=== PATIENT | male | born 1965 | race Caucasian/White ===

== ENCOUNTER → 2016-12-26 | Outpatient (CLI) | payer BC, MEDICAID ==
--- NOTE | 2016-12-26 08:41 | REP ---
MRI LUMBAR SPINE WITHOUT CONTRAST: 12/26/2016 CLINICAL HISTORY: Intervertebral disc degeneration. Back pain. COMPARISON: 06/26/2014 MRI. TECHNIQUE: Sagittal T1, T2 and STIR images with axial T1-T2 sequences provided. FINDINGS. Sagittal images show slight loss of lordosis but this is unchanged from the previous study. There is mild decreased disc water signal at L4-5 and L5-S1. Decreased disc water signal and height at L1-2 are again seen. There is some progression of disc desiccation at the L1-2 level. I see no marrow signal abnormality to suggest compression deformity or focal lesion other than a small benign hemangioma in the superior anterior aspect of L3. Marginal osteophytes anteriorly at the L1-2 level. Conus terminates at the T12-L1 level. The T12-L1 level shows no disc bulge herniation and no spinal or foraminal stenosis. At L1-2, minimal disc bulge without spinal or foraminal stenosis. At L2-L3 and L3-L4, there is no disc bulge or herniation and no spinal or foraminal stenosis. At L4-5, there is mild broad-based disc bulge flattening the ventral thecal sac. This abuts the L5 nerve roots in the canal but does not displace them. Cross-sectional area of the canal was adequate. There is hypertrophic facet change at this level. The left foramen is marginal and the right foramen shows some loss of perineural fat with borderline nerve root compression. At L5-S1, there is a tiny central disc protrusion without spinal stenosis. The disc does not abut or displace the S1 nerve roots in the canal, which has ample cross-sectional area. There is some loss of perineural fat bilaterally with the L5 roots mildly compressed in those foramina. IMPRESSION: 1. Very tiny central disc protrusion at L5-S1 not causing central canal stenosis. Hypertrophic facet changes cause some encroachment bilaterally in the foramina with borderline nerve root compression. 2. Mild broad-based disc bulge at L4-5 without significant central canal stenosis and with facet hypertrophy and a marginal left foramen with right foramen with borderline nerve root compression. 3. Mild disc space narrowing at L1-2 without spinal or foraminal stenosis. 4. L2-3 and L3-4, there is no disc bulge or herniation and no spinal or foraminal stenosis. Signed by Evin Salazar MD 12/26/2016 05:49 P
== END ==
LOC: M RAD 06:45
PROVIDERS: ATTEND Orthopaedic Surgery
DX: M51.36 Other intervertebral disc degeneration, lumbar region (principal)

== ENCOUNTER → 2017-02-22 | Outpatient (REF) | payer BC, MEDICAID ==
[2017-02-22 14:51] LABS: ALBUMIN/GLOBULIN RATIO 1.48 (1.00-1.93); ALKALINE PHOSPHATASE 71 U/L (45-117); ALT/SGPT 31 U/L (12-78); ANION GAP 7 MEQ/L (8-16); AST/SGOT 15 U/L (15-37); BILIRUBIN,TOTAL 0.4 MG/DL (0.2-1.0); BLOOD UREA NITROGEN 28 MG/DL (7-18); CALCIUM LEVEL 8.8 MG/DL (8.5-10.1); CARBON DIOXIDE LEVEL 25 MEQ/L (21-32); CHLORIDE LEVEL 109 MEQ/L (98-107); GLOMERULAR FILTRATION RATE > 60.0 (>56); GLUCOSE, FASTING 86 MG/DL (70-105); POTASSIUM SERUM 3.9 MEQ/L (3.5-5.1); SODIUM LEVEL 141 MEQ/L (136-145); TOTAL PROTEIN 6.7 GM/DL (6.4-8.2)
== END ==
LOC: M SFHCPLAZ 10:35
PROVIDERS: ATTEND Family Medicine
DX: E11.9 Type 2 diabetes mellitus without complications (principal); Z12.5 Encounter for screening for malignant neoplasm of prostate
CPT/HCPCS: 36415; 80053; 83036; G0103

== ENCOUNTER → 2017-09-05 | Outpatient (REF) | payer BC, MEDICAID ==
[2017-09-05 12:47] LABS: ALKALINE PHOSPHATASE 76 U/L (45-117); ALT/SGPT 32 U/L (12-78); ANION GAP 8 MEQ/L (8-16); AST/SGOT 16 U/L (15-37); BILIRUBIN,TOTAL 0.6 MG/DL (0.2-1.0); BLOOD UREA NITROGEN 20 MG/DL (7-18); CALCIUM LEVEL 8.9 MG/DL (8.5-10.1); CARBON DIOXIDE LEVEL 28 MEQ/L (21-32); CHLORIDE LEVEL 106 MEQ/L (98-107); CREATININE FOR GFR 1.24 MG/DL (0.70-1.30); GLOMERULAR FILTRATION RATE > 60.0 (>56); GLUCOSE, FASTING 83 MG/DL (70-105); POTASSIUM SERUM 3.9 MEQ/L (3.5-5.1); SODIUM LEVEL 142 MEQ/L (136-145); TRIGLYCERIDES LEVEL 125 MG/DL (<150)
[2017-09-05 12:48] LABS: ALBUMIN/GLOBULIN RATIO 1.43 (1.00-1.93); CHOLESTEROL LEVEL 83 MG/DL (<200); TOTAL PROTEIN 6.8 GM/DL (6.4-8.2)
== END ==
LOC: M SFHCPLAZ 08:58
PROVIDERS: ATTEND Family Medicine
DX: E11.9 Type 2 diabetes mellitus without complications (principal); E78.4 Other hyperlipidemia; Z12.5 Encounter for screening for malignant neoplasm of prostate

== ENCOUNTER 2017-11-04 11:59 | Emergency (ER) | payer BC, MEDICAID ==
[~2017-11-04] VITALS: Ht 180.3 cm; Wt 118.2 kg
[2017-11-04] MEDS ORDERED: GLIM2TAB PO (12:10)
[2017-11-04] MEDS ORDERED: TERA5CA PO (12:10)
[2017-11-04] MEDS ORDERED: TRAD5TAB PO (12:10)
[2017-11-04] MEDS ORDERED: ATOR40TA75 PO (12:10)
[2017-11-04] MEDS ORDERED: LISI-538 PO (12:10)
[2017-11-04] MEDS ORDERED: METF500T13 PO (12:10)
[2017-11-04] MEDS ORDERED: OMEP20CA3 PO (12:10)
[2017-11-04] MEDS ORDERED: FINA5TAB2 PO (12:10)
[2017-11-04] MEDS ORDERED: MELO15TA4 PO (12:10)
[2017-11-04] MEDS ORDERED: IPRATROPIUM 0.5MG/ALBUTEROL 2.5MG INH SOL UD 3ML (DUONEB)(J7620) NEB ONE (14:15)
[2017-11-04] MEDS ORDERED: ACETAMINOPH W/CODEINE #3 TAB UD PO ONE ×2 (14:15→14:30)
--- NOTE | 2017-11-04 14:22 | REP ---
REASON: Fever and cough. FINDINGS: The superior mediastinal structures are midline. The cardiac silhouette is unremarkable in size, shape, and position. The diaphragmatic surfaces of the lungs are regular, and the costophrenic angles are clear. The pulmonary santana are clear. The imaged osseous structures are intact. IMPRESSION: There is no acute cardiopulmonary disease. Signed by Meliton Lopez DO 11/04/2017 02:27 P
[2017-11-04] MEDS ORDERED: ACET30TAB PO (14:36)
[2017-11-04] MEDS ORDERED: ZITHTAB PO (14:36)
[2017-11-04] MEDS ORDERED: PROAAER10 INH (14:36)
[2017-11-04] MEDS ORDERED: BENZ100C5 PO (14:36)
[2017-11-04 14:47] VITALS: BP 144/99
== END 2017-11-04 14:51 | disposition home or self-care (01) ==
LOC: M ED 11:59
DX: J20.9 Acute bronchitis, unspecified (principal); M54.9 Dorsalgia, unspecified

== ENCOUNTER → 2017-12-21 | Outpatient (CLI) | payer BC, MEDICAID | LOC: M ADAMS 10:28 | DX: S22.32XA Fracture of one rib, left side, initial encounter for closed fracture (principal); X58.XXXA Exposure to other specified factors, initial encounter; Y92.89 Other specified places as the place of occurrence of the external cause | CPT/HCPCS: 71111 ==

== ENCOUNTER → 2018-01-08 | Outpatient (REF) | payer BC, MEDICAID ==
[2018-01-08 12:01] LABS: ESTIMATED AVERAGE GLUCOSE 123 MG/DL (60-110); HEMOGLOBIN A1c 5.9 %
[2018-01-08 12:27] LABS: ANION GAP 10 MEQ/L (8-16); BLOOD UREA NITROGEN 13 MG/DL (7-18); CARBON DIOXIDE LEVEL 28 MEQ/L (21-32); CHLORIDE LEVEL 106 MEQ/L (98-107); CREATININE FOR GFR 1.19 MG/DL (0.70-1.30); GLOMERULAR FILTRATION RATE > 60.0 (>56); GLUCOSE, FASTING 119 MG/DL (70-100); POTASSIUM SERUM 4.1 MEQ/L (3.5-5.1); SODIUM LEVEL 144 MEQ/L (136-145)
== END ==
LOC: M SFHCPLAZ 08:11
DX: E11.9 Type 2 diabetes mellitus without complications (principal)
CPT/HCPCS: 83036

== ENCOUNTER 2018-04-14 09:11 | Emergency (ER) | payer BC, MEDICAID ==
[2018-04-14] MEDS: KETOROLAC TROMETHAMINE 10 MG TAB PO (09:53)
== END 2018-04-14 11:12 | disposition home or self-care (01) ==
LOC: M ED 09:11
DX: S23.41XA Sprain of ribs, initial encounter (principal); X50.0XXA Overexertion from strenuous movement or load, initial encounter; Y92.099 Unspecified place in other non-institutional residence as the place of occurrence of the external cause; Y93.89 Activity, other specified; Y99.9 Unspecified external cause status; E11.9 Type 2 diabetes mellitus without complications; I10 Essential (primary) hypertension; E78.5 Hyperlipidemia, unspecified; K21.9 Gastro-esophageal reflux disease without esophagitis; Z87.81 Personal history of (healed) traumatic fracture; Z79.84 Long term (current) use of oral hypoglycemic drugs; Z79.899 Other long term (current) drug therapy
CPT/HCPCS: 71101

== ENCOUNTER → 2018-05-22 | Outpatient (CLI) | payer BC | LOC: M PAIN 15:00 | DX: S22.42XA Multiple fractures of ribs, left side, initial encounter for closed fracture (principal); Y92.89 Other specified places as the place of occurrence of the external cause; Y93.89 Activity, other specified; Y99.8 Other external cause status; I10 Essential (primary) hypertension; E11.9 Type 2 diabetes mellitus without complications; E78.5 Hyperlipidemia, unspecified; K21.9 Gastro-esophageal reflux disease without esophagitis; Z79.84 Long term (current) use of oral hypoglycemic drugs; Z79.899 Other long term (current) drug therapy | CPT/HCPCS: G0463 ==

== ENCOUNTER → 2018-06-20 | Outpatient (REF) | payer BC ==
[2018-06-20 14:54] LABS: ALBUMIN 3.9 GM/DL (3.2-5.2); ALBUMIN/GLOBULIN RATIO 1.39 (1.00-1.93); ALKALINE PHOSPHATASE 85 U/L (45-117); ALT/SGPT 59 U/L (12-78); ANION GAP 9 MEQ/L (8-16); AST/SGOT 22 U/L (7-37); BILIRUBIN,TOTAL 0.9 MG/DL (0.2-1.0); BLOOD UREA NITROGEN 15 MG/DL (7-18); CALCIUM LEVEL 8.7 MG/DL (8.5-10.1); CARBON DIOXIDE LEVEL 27 MEQ/L (21-32); CHLORIDE LEVEL 108 MEQ/L (98-107); CHOLESTEROL LEVEL 87 MG/DL (<200); CHOLESTEROL RISK RATIO 2.636 (<5); CREATININE FOR GFR 1.15 MG/DL (0.70-1.30); GLOMERULAR FILTRATION RATE > 60.0 (>56); GLUCOSE, FASTING 115 MG/DL (70-100); HDL CHOLESTEROL 33 MG/DL (>40); LDL CHOLESTEROL 14.4 MG/DL (<100); NON-HDL-C 54 MG/DL; SODIUM LEVEL 144 MEQ/L (136-145); TOTAL PROTEIN 6.7 GM/DL (6.4-8.2); TRIGLYCERIDES LEVEL 198 MG/DL (<150)
[2018-06-20 15:01] LABS: ESTIMATED AVERAGE GLUCOSE 157 MG/DL (60-110); HEMOGLOBIN A1c 7.1 %; MALB URINE SIEMENS 33.9 MG/L; MAU/CREAT RATIO 21.4 MCG/MG (0.0-30.0)
== END ==
LOC: M SFHCADAM 11:14
DX: E11.9 Type 2 diabetes mellitus without complications (principal); E78.4 Other hyperlipidemia
CPT/HCPCS: 80053

== ENCOUNTER → 2019-01-06 | Outpatient (REF) | payer BC ==
[~2019-01-06] MED LIST: ACET30TAB PO; ALEV220C2 PO; ATOR40TA75 PO; BENZ-18 PO; CYCL10TA PO; FINA5TAB2 PO; GLIM2TAB PO; LISI-538 PO; MELO15TA28 PO; METF500T13 PO; NORCOTAB PO; OMEP20CA3 PO; PROAAER10 INH; TERA5CAP3 PO; TRAD5TAB PO; ZITHTAB PO
[2019-01-06 12:47] LABS: BLOOD UREA NITROGEN 17 MG/DL (7-18); CALCIUM LEVEL 9.1 MG/DL (8.5-10.1); CARBON DIOXIDE LEVEL 27 MEQ/L (21-32); CHLORIDE LEVEL 107 MEQ/L (98-107); CREATININE FOR GFR 1.25 MG/DL (0.70-1.30); GLOMERULAR FILTRATION RATE > 60.0 (>56); GLUCOSE, FASTING 135 MG/DL (70-100); POTASSIUM SERUM 4.6 MEQ/L (3.5-5.1); SODIUM LEVEL 142 MEQ/L (136-145)
[2019-01-06 13:04] LABS: HEMOGLOBIN A1c 7.8 %
== END ==
LOC: M SFHCADAM 08:18
PROVIDERS: ATTEND Family Medicine
DX: E11.9 Type 2 diabetes mellitus without complications (principal)

== ENCOUNTER → 2019-01-08 | Outpatient (CLI) | payer BC ==
--- NOTE | 2019-01-08 17:28 | REP ---
UNILATERAL LEFT RIBS, 5 VIEWS: HISTORY: Left sided pain. COMPARISON: 04/14/2018. There is no PA chest with this rib series. There are old fractures of the left 7th and 8th ribs. There is no new fracture. The left lung is clear. IMPRESSION:Old left 7th and 8th rib fractures. Electronically Signed by Juanpablo Block MD 01/09/2019 08:15 A
== END ==
LOC: M ADAMS 11:39
PROVIDERS: ATTEND Family Medicine
DX: R07.81 Pleurodynia (principal); Z87.81 Personal history of (healed) traumatic fracture

== ENCOUNTER → 2019-04-03 | Outpatient (REF) | payer BC ==
[~2019-04-03] MED LIST changes: +ACET-716 PO; -ACET30TAB PO; +HYDR-3715 PO; -NORCOTAB PO
== END ==
LOC: M SFHCPLAZ 17:28
PROVIDERS: ATTEND Dermatology
DX: D48.5 Neoplasm of uncertain behavior of skin (principal)

== ENCOUNTER → 2019-04-28 | Outpatient (REF) | payer BC ==
[2019-04-28 13:15] LABS: BLOOD UREA NITROGEN 20 MG/DL (7-18); CALCIUM LEVEL 9.1 MG/DL (8.5-10.1); CARBON DIOXIDE LEVEL 27 MEQ/L (21-32); CHLORIDE LEVEL 107 MEQ/L (98-107); GLOMERULAR FILTRATION RATE > 60.0 (>56); GLUCOSE, FASTING 141 MG/DL (70-100); POTASSIUM SERUM 4.2 MEQ/L (3.5-5.1); SODIUM LEVEL 141 MEQ/L (136-145)
[2019-04-28 14:27] LABS: HEMOGLOBIN A1c 7.7 %
== END ==
LOC: M SFHCADAM 07:55
PROVIDERS: ATTEND Family Medicine
DX: E11.9 Type 2 diabetes mellitus without complications (principal)

== ENCOUNTER → 2019-09-26 | Outpatient (REF) | payer BC ==
[~2019-09-26] MED LIST changes: -GLIM2TAB PO; +GLIM2TAB2 PO; -OMEP20CA3 PO; +OMEP20CA4 PO
[2019-09-26 15:59] LABS: HEMATOCRIT 41.1 % (42.0-52.0); HEMOGLOBIN 13.6 g/dl (13.5-17.5); MEAN CORPUSCULAR HEMOGLOBIN 29.2 pg (27.0-33.0); MEAN CORPUSCULAR HGB CONC 33.1 g/dl (32.0-36.5); MEAN CORPUSCULAR VOLUME 88.2 fl (80.0-96.0); PLATELET COUNT, AUTOMATED 182 10^3/uL (150-450); RED BLOOD COUNT 4.66 10^6/uL (4.30-6.10); WHITE BLOOD COUNT 7.1 10^3/uL (4.0-10.0)
[2019-09-26 16:07] LABS: ALBUMIN 3.9 GM/DL (3.2-5.2); BILIRUBIN,TOTAL 0.5 MG/DL (0.2-1.0); CALCIUM LEVEL 9.4 MG/DL (8.5-10.1); CHOLESTEROL RISK RATIO 2.775 (<5); CREATININE FOR GFR 1.53 MG/DL (0.70-1.30); GLOMERULAR FILTRATION RATE 50.4 (>56); POTASSIUM SERUM 4.5 MEQ/L (3.5-5.1); TOTAL PROTEIN 6.8 GM/DL (6.4-8.2)
[2019-09-26 16:34] LABS: HEMOGLOBIN A1c 7.5 %
[2019-09-26 16:35] LABS: MALB URINE SIEMENS 11.2 MG/L
== END ==
LOC: M SFHCADAM 13:05
PROVIDERS: ATTEND Family Medicine
DX: Z12.5 Encounter for screening for malignant neoplasm of prostate (principal); K21.0 Gastro-esophageal reflux disease with esophagitis; E78.49 Other hyperlipidemia; E11.9 Type 2 diabetes mellitus without complications
CPT/HCPCS: 80053; 80061; 82043; 83036; 85027; G0103

== ENCOUNTER → 2019-12-24 | Outpatient (REF) | payer BC ==
[~2019-12-24] MED LIST changes: -GLIM2TAB2 PO; +GLIM2TAB4 PO; +OMEP1CAP73 PO; -OMEP20CA4 PO
[2019-12-24 14:01] LABS: ALBUMIN 4.3 GM/DL (3.2-5.2); BILIRUBIN,TOTAL 0.7 MG/DL (0.2-1.0); CALCIUM LEVEL 9.1 MG/DL (8.5-10.1); CREATININE FOR GFR 1.52 MG/DL (0.70-1.30); GLOMERULAR FILTRATION RATE 50.8 (>56); POTASSIUM SERUM 3.9 MEQ/L (3.5-5.1)
[2019-12-24 14:04] LABS: HEMOGLOBIN A1c 6.8 %
== END ==
LOC: M SFHCADAM 09:36
PROVIDERS: ATTEND Family Medicine
DX: E11.9 Type 2 diabetes mellitus without complications (principal)

== ENCOUNTER → 2020-06-30 | Outpatient (REF) | payer BC ==
[~2020-06-30] MED LIST changes: +CYCL-707 PO; -CYCL10TA PO
[2020-08-14 17:06] LABS: CALCIUM LEVEL 8.9 MG/DL (8.5-10.1); CREATININE FOR GFR 1.5 MG/DL (0.70-1.30); GLOMERULAR FILTRATION RATE 51.5 (>56); HEMOGLOBIN A1c 6.8 %; POTASSIUM SERUM 4.3 MEQ/L (3.5-5.1)
[2020-08-14 17:13] LABS: MALB URINE SIEMENS 19.3 MG/L
== END ==
LOC: M SFHCADAM 09:03
PROVIDERS: ATTEND Family Medicine
DX: E11.9 Type 2 diabetes mellitus without complications (principal); N18.3 Chronic kidney disease, stage 3 (moderate); I12.9 Hypertensive chronic kidney disease with stage 1 through stage 4 chronic kidney disease, or unspecified chronic kidney disease

== ENCOUNTER → 2020-12-23 | Outpatient (REF) | payer BC ==
[2020-12-23 12:50] LABS: HEMATOCRIT 44.5 % (42.0-52.0); HEMOGLOBIN 14.5 g/dl (13.5-17.5); MEAN CORPUSCULAR HEMOGLOBIN 27.9 pg (27.0-33.0); MEAN CORPUSCULAR HGB CONC 32.6 g/dl (32.0-36.5); MEAN CORPUSCULAR VOLUME 85.6 fl (80.0-96.0); PLATELET COUNT, AUTOMATED 176 10^3/uL (150-450); WHITE BLOOD COUNT 7.7 10^3/uL (4.0-10.0)
[2020-12-23 13:55] LABS: BILIRUBIN,TOTAL 0.6 MG/DL (0.2-1.0); CALCIUM LEVEL 9.4 MG/DL (8.5-10.1); CHOLESTEROL RISK RATIO 2.75 (<5); CREATININE FOR GFR 1.44 MG/DL (0.70-1.30); GLOMERULAR FILTRATION RATE 53.8 (>56); POTASSIUM SERUM 4.9 MEQ/L (3.5-5.1); TOTAL PROTEIN 6.9 GM/DL (6.4-8.2)
[2020-12-23 14:05] LABS: CREATININE, URINE 86.2 MG/DL; MAU/CREAT RATIO 30.1 MCG/MG (0.0-30.0)
[2020-12-23 15:32] LABS: HEMOGLOBIN A1c 6.8 %
== END ==
LOC: M SFHCADAM 08:10
PROVIDERS: ATTEND Family Medicine
DX: N18.31 Chronic kidney disease, stage 3a (principal); E11.22 Type 2 diabetes mellitus with diabetic chronic kidney disease; E78.5 Hyperlipidemia, unspecified

== ENCOUNTER → 2021-01-05 | Outpatient (CLI) | payer BC ==
[~2021-01-05] MED LIST changes: -LISI-538 PO; +LISI20TA33 PO
--- NOTE | 2021-01-05 17:21 | REP ---
INDICATION: TROCHANTERIC BURSITIS, RIGHT HIP COMPARISON: None. TECHNIQUE: AP and frog-lateral views of the right hip FINDINGS: Moderate arthritic changes including increased sclerosis along the acetabular roof with joint space narrowing as well as spurring to the acetabular margin and small early osteophyte formation along the femoral head. No acute or healed injury identified. Surrounding soft tissues are unremarkable. IMPRESSION: Moderate arthritic changes. <Electronically signed by Bravo Tidwell > 01/05/21 [id number]
== END ==
LOC: M ADAMS 14:13
PROVIDERS: ATTEND Family Medicine
DX: M70.61 Trochanteric bursitis, right hip (principal)

== ENCOUNTER → 2021-07-06 | Outpatient (REF) | payer BC ==
[2021-07-06 14:23] LABS: CALCIUM LEVEL 9.5 MG/DL (8.5-10.1); CREATININE FOR GFR 1.4 MG/DL (0.70-1.30); GLOMERULAR FILTRATION RATE 55.6 (>56); POTASSIUM SERUM 3.9 MEQ/L (3.5-5.1)
[2021-07-06 16:57] LABS: HEMOGLOBIN A1c 8.5 %
== END ==
LOC: M SFHCADAM 12:21
PROVIDERS: ATTEND Family Medicine
DX: E11.42 Type 2 diabetes mellitus with diabetic polyneuropathy (principal)

== ENCOUNTER → 2021-10-06 | Outpatient (REF) | payer BC ==
[2021-10-06 14:27] LABS: CREATININE FOR GFR 1.41 MG/DL (0.70-1.30)
[2021-10-06 14:28] LABS: CALCIUM LEVEL 9.1 MG/DL (8.5-10.1); POTASSIUM SERUM 4.4 MEQ/L (3.5-5.1)
== END ==
LOC: M SFHCADAM 08:03
PROVIDERS: ATTEND Family Medicine
DX: E11.42 Type 2 diabetes mellitus with diabetic polyneuropathy (principal)

== ENCOUNTER → 2021-12-17 | Outpatient (REF) | LOC: M LABSMTC 09:46 | PROVIDERS: ATTEND Pediatrics | DX: Z11.52 Encounter for screening for COVID-19 (principal) ==

== ENCOUNTER → 2022-02-02 | Outpatient (REF) | payer BC ==
[2022-02-02 13:38] LABS: CALCIUM LEVEL 8.9 MG/DL (8.5-10.1); CREATININE FOR GFR 1.44 MG/DL (0.70-1.30); GLOMERULAR FILTRATION RATE 53.6 (>56); POTASSIUM SERUM 4.8 MEQ/L (3.5-5.1)
[2022-02-02 14:50] LABS: HEMOGLOBIN A1c 7.7 %
== END ==
LOC: M SFHCADAM 07:51
PROVIDERS: ATTEND Family Medicine
DX: E11.42 Type 2 diabetes mellitus with diabetic polyneuropathy (principal)

== ENCOUNTER → 2022-05-10 | Outpatient (CLI) | payer BC | LOC: M ADAMS 14:26 | PROVIDERS: ATTEND Family Medicine | DX: M47.9 Spondylosis, unspecified (principal); M25.78 Osteophyte, vertebrae; M51.37 Other intervertebral disc degeneration, lumbosacral region ==

== ENCOUNTER → 2022-05-10 | Outpatient (REF) | payer BC ==
[2022-05-10 16:56] LABS: APPEARANCE, URINE CLEAR (CLEAR); BACTERIA, URINE AUTO NEGATIVE (NEGATIVE); BILIRUBIN, URINE AUTO NEGATIVE (NEGATIVE); BLOOD, URINE BLOOD NEGATIVE (NEGATIVE); COLOR, URINE STRAW (YELLOW); GLUCOSE, URINE (UA) AUTO 3+ mg/dL (NEGATIVE); KETONE, URINE AUTO NEGATIVE (NEGATIVE); LEUKOCYTE ESTERASE, URINE AUTO NEGATIVE (NEGATIVE); MUCUS, URINE SMALL (NEGATIVE); NITRITE, URINE AUTO NEGATIVE (NEGATIVE); PROTEIN, URINE AUTO NEGATIVE (NEGATIVE); RBC, URINE AUTO 0 /HPF (0-3); SPECIFIC GRAVITY URINE AUTO 1.018 (1.002-1.035); SQUAMOUS EPITHELIAL CELL UR AU 1 /HPF (0-6); UROBILINOGEN, URINE AUTO 0.2 mg/dL (0.0-2.0); WBC, URINE AUTO 8 /HPF (0-3)
== END ==
LOC: M SFHCADAM 14:21
PROVIDERS: ATTEND Family Medicine
DX: N40.1 Benign prostatic hyperplasia with lower urinary tract symptoms (principal)
CPT/HCPCS: 81001; 87086; G0103

== ENCOUNTER 2022-06-22 08:42 | Outpatient (RCR) | payer BC | END 2022-06-25 | LOC: M PT 08:42 | PROVIDERS: ATTEND Orthopaedic Surgery | DX: M54.50 Low back pain, unspecified (principal) ==

== ENCOUNTER 2022-07-10 09:48 | Outpatient (RCR) | payer BC | END 2022-07-26 | LOC: M PT 09:48 | PROVIDERS: ATTEND Orthopaedic Surgery | DX: M54.50 Low back pain, unspecified (principal) ==

== ENCOUNTER → 2022-07-27 | Outpatient (CLI) | payer BC | LOC: M RAD 06:56 | PROVIDERS: ATTEND Pain Medicine Interventional Pain Medicine | DX: M47.817 Spondylosis without myelopathy or radiculopathy, lumbosacral region (principal); M51.46 Schmorl's nodes, lumbar region; M51.26 Other intervertebral disc displacement, lumbar region ==

== ENCOUNTER 2022-08-01 08:13 | Outpatient (RCR) | payer BC | END 2022-08-25 | LOC: M PT 08:13 | PROVIDERS: ATTEND Orthopaedic Surgery | DX: M54.50 Low back pain, unspecified (principal) ==

== ENCOUNTER → 2022-08-01 | Outpatient (REF) | payer BC ==
[2022-08-01 14:06] LABS: ALBUMIN 3.9 GM/DL (3.2-5.2); BILIRUBIN,TOTAL 0.7 MG/DL (0.2-1.0); CHOLESTEROL RISK RATIO 2.657 (<5); CREATININE FOR GFR 1.48 MG/DL (0.70-1.30); POTASSIUM SERUM 4.4 MEQ/L (3.5-5.1); TOTAL PROTEIN 6.8 GM/DL (6.4-8.2)
[2022-08-01 14:07] LABS: CREATININE, URINE 93.4 MG/DL; MALB URINE SIEMENS 26.8 MG/L; MAU/CREAT RATIO 28.6 MCG/MG (0.0-30.0)
[2022-08-01 15:55] LABS: HEMOGLOBIN A1c 7.7 %
== END ==
LOC: M SFHCADAM 09:59
PROVIDERS: ATTEND Family Medicine
DX: E11.42 Type 2 diabetes mellitus with diabetic polyneuropathy (principal); E78.5 Hyperlipidemia, unspecified

== ENCOUNTER → 2022-12-04 | Outpatient (REF) ==
[2022-12-04 14:31] LABS: RSV AMPLIFICATION NEGATIVE (NEGATIVE)
== END ==
LOC: M EMP 13:18
PROVIDERS: ATTEND Family Medicine
DX: Z11.59 Encounter for screening for other viral diseases (principal)

== ENCOUNTER → 2023-03-16 | Outpatient (CLI) | payer BC ==
[2023-03-16 08:38] LABS: HEMOGLOBIN A1c 8.6 % (4.0-6.0)
[2023-03-16 08:48] LABS: BILIRUBIN,TOTAL 0.9 MG/DL (0.3-1.2); CREATININE FOR GFR 1.31 MG/DL (0.70-1.30); GLOMERULAR FILTRATION RATE 59.6 (>56); POTASSIUM SERUM 4.2 MMOL/L (3.5-5.1); TOTAL PROTEIN 6.4 G/DL (5.7-8.2)
[2023-03-16 08:50] LABS: FREE T4 0.97 NG/DL (0.89-1.76); THYROID STIMULATING HORMONE 1.43 uIU/ML (0.55-4.78)
[2023-03-17 18:09] LABS: TESTOSTERONE FREE (DIRECT) 9.1 pg/mL (7.2-24.0)
== END ==
LOC: M LAB 07:18
PROVIDERS: ATTEND Family Medicine
DX: E11.42 Type 2 diabetes mellitus with diabetic polyneuropathy (principal); E11.69 Type 2 diabetes mellitus with other specified complication; N52.1 Erectile dysfunction due to diseases classified elsewhere

== ENCOUNTER → 2023-11-01 | Outpatient (REF) | payer BC ==
[2023-11-01 14:59] LABS: APPEARANCE, URINE CLEAR (CLEAR); BACTERIA, URINE AUTO NEGATIVE (NEGATIVE); BILIRUBIN, URINE AUTO NEGATIVE (NEGATIVE); BLOOD, URINE BLOOD NEGATIVE (NEGATIVE); COLOR, URINE STRAW (YELLOW); GLUCOSE, URINE (UA) AUTO 3+ mg/dL (NEGATIVE); KETONE, URINE AUTO NEGATIVE (NEGATIVE); LEUKOCYTE ESTERASE, URINE AUTO NEGATIVE (NEGATIVE); NITRITE, URINE AUTO NEGATIVE (NEGATIVE); PROTEIN, URINE AUTO NEGATIVE (NEGATIVE); RBC, URINE AUTO 0 /HPF (0-3); SQUAMOUS EPITHELIAL CELL UR AU 2 /HPF (0-6); UROBILINOGEN, URINE AUTO 0.2 mg/dL (0.0-2.0); WBC, URINE AUTO 0 /HPF (0-3)
== END ==
LOC: M SMT 13:24
PROVIDERS: ATTEND Physician Assistant
DX: N50.89 Other specified disorders of the male genital organs (principal)

== ENCOUNTER → 2023-11-02 | Outpatient (CLI) | payer BC | LOC: M RAD 13:31 | PROVIDERS: ATTEND Physician Assistant | DX: N50.89 Other specified disorders of the male genital organs (principal); N43.3 Hydrocele, unspecified; N50.3 Cyst of epididymis ==

== ENCOUNTER → 2023-11-24 | Outpatient (REF) | LOC: M EMP 13:13 | PROVIDERS: ATTEND Family Medicine | DX: Z11.52 Encounter for screening for COVID-19 (principal) ==

== ENCOUNTER → 2023-12-15 | Outpatient (CLI) | payer BC ==
[2023-12-15 08:43] LABS: HEMOGLOBIN 15.8 g/dl (13.5-17.5); MEAN CORPUSCULAR HEMOGLOBIN 28.4 pg (27.0-33.0); MEAN CORPUSCULAR HGB CONC 34.3 g/dl (32.0-36.5); MEAN CORPUSCULAR VOLUME 82.6 fl (80.0-96.0); PLATELET COUNT, AUTOMATED 187 10^3/uL (150-450); RED BLOOD COUNT 5.57 10^6/uL (4.30-6.10); WHITE BLOOD COUNT 9.5 10^3/uL (4.0-10.0)
[2023-12-15 08:54] LABS: HEMOGLOBIN A1c 13.4 % (4.0-6.0)
[2023-12-15 09:15] LABS: MAU/CREAT RATIO 6.7 MCG/MG (0.0-30.0)
[2023-12-15 09:17] LABS: ALBUMIN 3.9 G/DL (3.2-5.2); ALKALINE PHOSPHATASE 87 U/L (46-116); ALT/SGPT 51 U/L (7.0-40); AST/SGOT 11 U/L (<34); BILIRUBIN,TOTAL 0.9 MG/DL (0.3-1.2); BLOOD UREA NITROGEN 27 MG/DL (9-23); CALCIUM LEVEL 9.2 MG/DL (8.3-10.6); CARBON DIOXIDE LEVEL 25 MMOL/L (20-31); CHLORIDE LEVEL 100 MMOL/L (98-107); CHOLESTEROL LEVEL 235 MG/DL (<200); CREATININE FOR GFR 1.39 MG/DL (0.70-1.30); GLOMERULAR FILTRATION RATE 55.5 (>49); GLUCOSE, FASTING 285 MG/DL (74-106); HDL CHOLESTEROL 39.8 MG/DL (>40); NON-HDL-C 195.2 MG/DL; POTASSIUM SERUM 4.6 MMOL/L (3.5-5.1); PSA SCREENING 0.56 NG/ML (< 4.00); SODIUM LEVEL 133 MMOL/L (136-145); TOTAL PROTEIN 6.6 G/DL (5.7-8.2); TRIGLYCERIDES LEVEL 553 MG/DL (<150)
== END ==
LOC: M LAB 08:15
PROVIDERS: ATTEND Family Medicine
DX: K76.0 Fatty (change of) liver, not elsewhere classified (principal); E11.42 Type 2 diabetes mellitus with diabetic polyneuropathy; Z12.5 Encounter for screening for malignant neoplasm of prostate; I12.9 Hypertensive chronic kidney disease with stage 1 through stage 4 chronic kidney disease, or unspecified chronic kidney disease
CPT/HCPCS: 36415; 80053; 80061; 82043; 83036; 85027; G0103

== ENCOUNTER → 2024-01-22 | Outpatient (CLI) | payer BC | LOC: M RAD 06:04 | PROVIDERS: ATTEND Physician Assistant | DX: N43.3 Hydrocele, unspecified (principal); N50.3 Cyst of epididymis ==

== ENCOUNTER → 2024-04-23 | Outpatient (REF) | payer BC ==
[2024-04-23 14:53] LABS: CALCIUM LEVEL 9.5 MG/DL (8.3-10.6); CREATININE FOR GFR 1.51 MG/DL (0.70-1.30); GLOMERULAR FILTRATION RATE 50.4 (>49); POTASSIUM SERUM 4.9 MMOL/L (3.5-5.1)
[2024-04-23 15:23] LABS: HEMOGLOBIN A1c 7.9 % (4.0-6.0)
== END ==
LOC: M SFHCADAM 08:26
PROVIDERS: ATTEND Family Medicine
DX: E11.42 Type 2 diabetes mellitus with diabetic polyneuropathy (principal)

== ENCOUNTER → 2024-09-23 | Outpatient (REF) | payer BC ==
[2024-09-23 13:07] LABS: ALBUMIN 4.1 G/DL (3.2-5.2); BILIRUBIN,TOTAL 0.7 MG/DL (0.3-1.2); CALCIUM LEVEL 10.1 MG/DL (8.3-10.6); CREATININE FOR GFR 1.68 MG/DL (0.70-1.30); GLOMERULAR FILTRATION RATE 44.4 (>49); POTASSIUM SERUM 5.4 MMOL/L (3.5-5.1); TOTAL PROTEIN 6.8 G/DL (5.7-8.2)
== END ==
LOC: M SFHCADAM 10:14
PROVIDERS: ATTEND Family Medicine
DX: E11.42 Type 2 diabetes mellitus with diabetic polyneuropathy (principal)

== ENCOUNTER 2024-12-10 10:53 | Day surgery (SDC) | payer BC ==
[~2024-12-10] VITALS: Ht 177.8 cm; Wt 99.7 kg
[~2024-12-10 10:53] MED LIST changes: +GABA-1172 PO; +JARD1TAB3 PO; +LANTINJ4; +LIDOCAINE 2% 100MG/5ML SDV (FOR ANES.) As Ordered ONE; +LISI10TA22 PO; +TAMS1CAP17 PO; +TIRZ12.5; +propofoL 200 MG/20 ML VIAL As Ordered ONE
[2024-12-10 13:52] VITALS: BP 137/91; O2SAT 97
== END 2024-12-10 14:00 | disposition home or self-care (01) ==
LOC: M OPP 10:53
PROVIDERS: ATTEND Internal Medicine Gastroenterology
DX: Z12.11 Encounter for screening for malignant neoplasm of colon (principal); Z12.12 Encounter for screening for malignant neoplasm of rectum; D12.3 Benign neoplasm of transverse colon; K64.0 First degree hemorrhoids; K57.30 Diverticulosis of large intestine without perforation or abscess without bleeding; E11.9 Type 2 diabetes mellitus without complications; E78.00 Pure hypercholesterolemia, unspecified; N40.0 Benign prostatic hyperplasia without lower urinary tract symptoms; Z79.85 Long-term (current) use of injectable non-insulin antidiabetic drugs; Z79.84 Long term (current) use of oral hypoglycemic drugs; Z79.899 Other long term (current) drug therapy

== ENCOUNTER → 2025-01-14 | Outpatient (REF) | payer BC ==
[~2025-01-14] MED LIST changes: -LIDOCAINE 2% 100MG/5ML SDV (FOR ANES.) As Ordered ONE; -propofoL 200 MG/20 ML VIAL As Ordered ONE
[2025-01-14 13:51] LABS: CALCIUM LEVEL 9.1 MG/DL (8.3-10.6); CREATININE FOR GFR 1.46 MG/DL (0.70-1.30); GLOMERULAR FILTRATION RATE 52.3 (>49); POTASSIUM SERUM 4.5 MMOL/L (3.5-5.1)
[2025-01-14 14:29] LABS: HEMOGLOBIN A1c 5.4 % (4.0-6.0)
== END ==
LOC: M SFHCADAM 07:58
PROVIDERS: ATTEND Family Medicine
DX: I10 Essential (primary) hypertension (principal); E11.42 Type 2 diabetes mellitus with diabetic polyneuropathy

== ENCOUNTER → 2025-03-23 | Outpatient (REF) | payer BC ==
[2025-03-23 13:42] LABS: BASO % 0.6 % (0.0-1.0); EOS # 0.1 10^3/uL (0.0-0.5); EOS % 1.9 % (0.0-3.0); HEMATOCRIT 48.2 % (42.0-52.0); HEMOGLOBIN 15.9 g/dl (13.5-17.5); LYMPH # 1.5 10^3/uL (1.5-5.0); LYMPH % 21.6 % (24.0-44.0); MEAN CORPUSCULAR HEMOGLOBIN 28.7 pg (27.0-33.0); MONO # 0.6 10^3/uL (0.0-0.8); MONO % 8.8 % (2.0-8.0); NEUTROPHILS # 4.6 10^3/uL (1.5-8.5); NEUTROPHILS % 66.7 % (36.0-66.0); PLATELET COUNT, AUTOMATED 168 10^3/uL (150-450); RED BLOOD COUNT 5.54 10^6/uL (4.30-6.10); WHITE BLOOD COUNT 6.8 10^3/uL (4.0-10.0)
[2025-03-23 13:51] LABS: CALCIUM LEVEL 9.2 MG/DL (8.3-10.6); CREATININE FOR GFR 1.43 MG/DL (0.70-1.30); GLOMERULAR FILTRATION RATE 55.8 (>49); MAGNESIUM LEVEL 1.9 MG/DL (1.8-2.4); PERCENT SATURATION 20.1 % (19.7-50.0)
[2025-03-23 14:10] LABS: HEMOGLOBIN A1c 5.4 % (4.0-6.0)
== END ==
LOC: M SFHCADAM 10:35
PROVIDERS: ATTEND Physician Assistant
DX: E11.42 Type 2 diabetes mellitus with diabetic polyneuropathy (principal)

== ENCOUNTER → 2025-03-23 | Outpatient (CLI) | payer BC | LOC: M ADAMS 10:37 | PROVIDERS: ATTEND Physician Assistant | DX: M47.816 Spondylosis without myelopathy or radiculopathy, lumbar region (principal); M51.369 Other intervertebral disc degeneration, lumbar region without mention of lumbar back pain or lower extremity pain; M16.11 Unilateral primary osteoarthritis, right hip ==

== ENCOUNTER → 2025-04-03 | Outpatient (CLI) | payer BC | LOC: M PLARAD 07:38 | PROVIDERS: ATTEND Physician Assistant | DX: G57.93 Unspecified mononeuropathy of bilateral lower limbs (principal); M47.816 Spondylosis without myelopathy or radiculopathy, lumbar region; M47.817 Spondylosis without myelopathy or radiculopathy, lumbosacral region; M48.07 Spinal stenosis, lumbosacral region ==

== ENCOUNTER → 2025-07-20 | Outpatient (REF) | payer BC ==
[2025-07-20 13:30] LABS: CALCIUM LEVEL 10.2 MG/DL (8.3-10.6); CARBON DIOXIDE LEVEL 28.0 MMOL/L (20-31); CHLORIDE LEVEL 108.0 MMOL/L (98-107); CREATININE FOR GFR 1.38 MG/DL (0.70-1.30); GLOMERULAR FILTRATION RATE 58.2 (>49); POTASSIUM SERUM 5.3 MMOL/L (3.5-5.1); SODIUM LEVEL 145.0 MMOL/L (136-145)
[2025-07-20 14:02] LABS: CREATININE, URINE 147.9 MG/DL
[2025-07-20 14:03] LABS: MALB URINE SIEMENS 12.0 MG/L; MAU/CREAT RATIO 8.1 MCG/MG (0.0-30.0)
[2025-07-20 14:11] LABS: ESTIMATED AVERAGE GLUCOSE 108.0 MG/DL (60-110)
== END ==
LOC: M SFHCADAM 09:47
PROVIDERS: ATTEND Family Medicine
DX: E11.42 Type 2 diabetes mellitus with diabetic polyneuropathy (principal)